=== PATIENT | female | born 1995 | race Caucasian/White ===

== ENCOUNTER 2016-07-22 20:04 | Emergency (ER) | payer BC ==
[2016-07-22 20:14] VITALS: RESP 16; TEMP 97.9; O2SAT 97
--- NOTE | 2016-07-22 20:41 | CPEKG ---
Heart Rate: 65 RR Interval: 923 P-R Interval: 148 QRSD Interval: 78 QT Interval: 412 QTC Interval: 429 P Lorain: 47 QRS Lorain: 72 T Wave Lorain: 59 EKG Severity - OTHERWISE NORMAL ECG - EKG Impression: SINUS ARRHYTHMIA, RATE 48-79 Electronically Signed By: Boo Rouse 22-Jul-2016 23:49:03
--- NOTE | 2016-07-22 20:44 | EDPHY ---
H & P Stated Complaint: sent from [facility] for PE concerns, cough malaise and chest pain Source: Patient Exam Limitations: No limitations - Personal History LMP (Females 10-55): Extended Cycle BCP/Inj Current Tetanus/Diphtheria Vaccine: Yes Current Tetanus Diphtheria and Acellular Pertussis (TDAP): Yes Tetanus Vaccine Date: within 5 years - Medical/Surgical History Hx Asthma: Yes Hx Chronic Respiratory Disease: No Hx Diabetes: No Hx Cardiac Disease: No Hx Renal Disease: No Hx Cirrhosis: No Hx Alcoholism: No Hx HIV/AIDS: No Hx Splenectomy or Spleen Trauma: No Other PMH: asthma, stomach ulcers. no PSH - Family History Significant Family History: No pertinent family hx - Social History Smoking Status: Never smoked Alcohol Use: None Time Seen by Provider: 07/22/16 20:22 HPI/ROS: CHIEF COMPLAINT: Sent to ER for evaluation of possible pulmonary embolism HISTORY OF PRESENT ILLNESS: The patient presents to the ED with several days of nausea, vomiting, cough, shortness of breath and inspiratory chest pain. The patient was seen at the [facility] earlier today. She had an x- ray performed and was started on antibiotics. Apparently the x-ray demonstrated some abnormal findings at the right lung base concerning for possible pulmonary embolism. The patient was sent here for further evaluation. Patient does use control pills. She has no history of PE or DVT. The patient denies asymmetric calf pain or swelling. The patient is definitely had infectious symptoms over the past week with cough, congestion, nausea and some resolved episodes of vomiting. REVIEW OF SYSTEMS: A comprehensive 10 point review of systems is otherwise negative aside from elements mentioned in the history of present illness. (Boo Rouse) - Physical Exam Exam: General Appearance: Alert, no distress Eyes: Pupils equal and round no pallor or injection ENT, Mouth: Mucous membranes moist Respiratory: There are no retractions, lungs are clear to auscultation Cardiovascular: Regular rate and rhythm Gastrointestinal: Abdomen is soft and nontender, no masses, bowel sounds normal Neurological: A&O, normal motor function, normal sensory exam, normal cranial nerves Skin: Warm and dry, no rashes Musculoskeletal: Neck is supple nontender Extremities: symmetrical, full range of motion (Boo Rouse) Constitutional: Initial Vital Signs Temperature (C) 36.6 C 07/22/16 20:12 Heart Rate 74 07/22/16 20:12 Respiratory Rate 16 07/22/16 20:12 Blood Pressure 134/74 H 07/22/16 20:12 O2 Sat (%) 97 07/22/16 20:12 O2 Delivery Mode Room Air Allergies/Adverse Reactions: Penicillins Allergy (Verified 07/22/16 20:09) Home Medications: Medication Instructions Recorded Albuterol Sulfate 07/22/16 Azithromycin 07/22/16 Beclomethasone Dipropionate 07/22/16 Minastrin 24 Fe Chewable Tab 07/22/16 Zofran 07/22/16 Medical Decision Making - Diagnostics EKG Interpretation: EKG: Complete interpretation has been separately recorded in the [email or web address] archive. Summary impression: Sinus rhythm (Boo Rouse) ED Course/Re-evaluation: The patient presents to the ED for evaluation of possible thromboembolic disease. The patient's D-dimer is negative which I feel adequately excludes pulmonary embolism in this low risk by Wells criteria patient. She presents to the ED with symptoms primarily consistent with bronchitis and viral syndrome. The patient is noted to have a possible mild infiltrate on her chest x-ray done at the [facility] has been given a prescription for antibiotics. The remainder of the patient's electrolytes look within normal limits. She was monitored in the ED without any evidence of arrhythmia. The patient will be discharged home in stable condition. She is encouraged to take Zofran as needed for nausea and antibiotic she had been prescribed earlier today. (Boo Rouse) Differential Diagnosis: Differential diagnosis considered includes pneumonia, pneumothorax, pulmonary embolism, viral syndrome (Boo Rouse) - Data Points Laboratory Results: Laboratory Results 07/22/16 20:45 07/22/16 20:45 07/22/16 20:45 WBC 9.92 H 10^3/uL (3.80-9.50) RBC 4.01 L 10^6/uL (4.18-5.33) Hgb 12.2 L g/dL (12.6-16.3) Hct 37.0 L % (38.0-47.0) MCV 92.3 fL (81.5-99.8) MCH 30.4 pg (27.9-34.1) MCHC 33.0 g/dL (32.4-36.7) RDW 13.5 % (11.5-15.2) Plt Count 339 10^3/uL (150-400) MPV 10.4 fL (8.7-11.7) Neut % (Auto) 52.6 % (39.3-74.2) Lymph % (Auto) 37.1 % (15.0-45.0) Pershing % (Auto) 8.2 % (4.5-13.0) Eos % (Auto) 1.6 % (0.6-7.6) Baso % (Auto) 0.2 L % (0.3-1.7) Nucleat RBC Rel Count 0.0 % (0.0-0.2) Absolute Neuts (auto) 5.22 10^3/uL (1.70-6.50) Absolute Lymphs (auto) 3.68 H 10^3/uL (1.00-3.00) Absolute Monos (auto) 0.81 H 10^3/uL (0.30-0.80) Absolute Eos (auto) 0.16 10^3/uL (0.03-0.40) Absolute Basos (auto) 0.02 10^3/uL (0.02-0.10) Absolute Nucleated RBC 0.00 10^3/uL (0-0.01) Immature Gran % 0.3 % (0.0-1.1) Immature Gran # 0.03 10^3/uL (0.00-0.10) D-Dimer 0.27 ug/mLFEU (0.00-0.50) Sodium 141 mEq/L (134-144) Potassium 4.2 mEq/L (3.5-5.2) Chloride 111 H mEq/L (97-110) Carbon Dioxide 17 L mEq/l (22-31) Anion Gap 13 mEq/L (8-16) BUN 12 mg/dL (7-23) Creatinine 0.6 mg/dL (0.6-1.0) Estimated GFR > 60 Glucose 98 mg/dL (70-100) Calcium 9.0 mg/dL (8.5-10.4) Beta HCG, Qual NEGATIVE Departure - Departure Disposition: Home, Routine, Self-Care Clinical Impression: Acute bronchitis Qualifiers: Bronchitis organism: other organism Qualifier Code: (J20.8) Acute bronchitis due to other specified organisms Condition: Fair Instructions: Acute Bronchitis (ED) Additional Instructions: 1. Please take antibiotics as prescribed. 2. There is no evidence of a blood clot based upon the testing done today. 3. Zofran as needed for nausea. 4. Please return to the ED for markedly worsening symptoms or other concerns. Referrals: [facility] [Outside] - 1-2 days without fail
[2016-07-22 20:58] LABS: % IMMATURE GRANULYOCYTES 0.3 % (0.0-1.1); ABSOLUTE IMMATURE GRANULOCYTES 0.03 10^3/uL (0.00-0.10); ADD DIFF? NO; ADD MORPH? NO; ADD SCAN? NO; ATYPICAL LYMPHOCYTE FLAG 30 (0-99); FRAGMENT RBC FLAG 0 (0-99); HEMOGLOBIN 12.2 g/dL (12.6-16.3); LEFT SHIFT FLG 0 (0-99); LIPEMIA HEMOLYSIS FLAG 80 (0-99); MEAN CELL HEMOGLOBIN 30.4 pg (27.9-34.1); MEAN CELL VOLUME 92.3 fL (81.5-99.8); MEAN PLATELET VOLUME 10.4 fL (8.7-11.7); PLATELET CLUMPS FLAG 0 (0-99); PLATELET COUNT 339 10^3/uL (150-400); RED BLOOD CELL COUNT 4.01 10^6/uL (4.18-5.33); RED CELL DISTRIBUTION WIDTH 13.5 % (11.5-15.2)
[2016-07-22 21:28] LABS: ANION GAP 13 mEq/L (8-16); CARBON DIOXIDE 17 mEq/l (22-31); CHLORIDE 111 mEq/L (97-110); CREATININE 0.6 mg/dL (0.6-1.0); GLOMERULAR FILTRATION RATE > 60; GLUCOSE 98 mg/dL (70-100); POTASSIUM 4.2 mEq/L (3.5-5.2); SODIUM 141 mEq/L (134-144)
[2016-07-22 22:36] VITALS: BP 129/54; PULSE 65
== END 2016-07-22 22:36 | disposition home or self-care (01) ==
DX: J20.8 Acute bronchitis due to other specified organisms (principal); J45.909 Unspecified asthma, uncomplicated

== ENCOUNTER 2017-02-04 13:17 | Observation (INO) | payer BC ==
--- NOTE | 2017-02-04 15:29 | EDPHY ---
H & P Stated Complaint: abdominal and pelvic pain . nausea and vomitting HPI/ROS: CHIEF COMPLAINT: Abdominal pain. HISTORY OF PRESENT ILLNESS: This patient is a 21 year old female arriving with her boyfriend complaining of abdominal pain and abnormal vaginal discharge worsening over the last two weeks. She was evaluated by her primary care physician at [facility] who diagnosed her with pelvic inflammatory disease. Pelvic exam and cultures done. She has a history of chronic yeast infections and her symptoms began with a suspected yeast infection in the first week of December. She treated this with 5- day terconazole cream. Over the last two weeks she has had worsening pain with intercourse and "greenish" vaginal discharge with associated lower abdominal pains which have waxed and waned. In the last three days, she has developed more pain in her lower abdomen. Last night, she had dysuria and her urine was dark and "smelly". She is unable to tolerate oral antibiotics or take any pills at all, so her primary care provider has recommended admission and treatment with IV antibiotics. She received IM Ceftriaxone prior to arrival. REVIEW OF SYSTEMS: A 10 point review of systems was performed and is negative with the exception of the elements mentioned in the history of present illness. Past medical history: Asthma, stomach ulcers, yeast infections, sexually transmitted infections Past surgical history: Noncontributory Family history: Unknown. Social history: Significant other at bedside. [employer] student. She drinks alcohol socially, does not use tobacco products. Occasional marijuana use, no illicits. Adult Physical: Vital signs reviewed. General Appearance: Alert, no acute distress. Eyes: Pupils equal and round, no conjunctival injection, no discharge. ENT, Mouth: Mucous membranes are moist, no oropharyngeal erythema or edema. Neck: No lymphadenopathy, supple. Respiratory: Lungs are clear to auscultation; no wheezes, rales, or rhonchi. Cardiovascular: Regular rate and rhythm; no murmur, rub, or gallop. Gastrointestinal: Midline suprapubic tenderness, right lower quadrant tenderness , abdomen is soft ,no masses or organomegaly, bowel sounds normal. Pelvic: Deferred, performed earlier at [facility] today. Skin: Warm and dry, no rashes, normal color. Back: No CVAT. Neurological: Alert and oriented. Moving all four extremities easily and equally. Psychiatric: Normal affect. - Personal History LMP (Females 10-55): 8-14 Days Ago Tetanus Vaccine Date: within 5 years - Medical/Surgical History Hx Asthma: Yes Hx Chronic Respiratory Disease: No Hx Diabetes: No Hx Cardiac Disease: No Hx Renal Disease: No Hx Cirrhosis: No Hx Alcoholism: No Hx HIV/AIDS: No Hx Splenectomy or Spleen Trauma: No Other PMH: asthma, stomach ulcers. no PSH - Social History Smoking Status: Never smoked Constitutional: Initial Vital Signs Temperature (C) 36.9 C 02/04/17 13:26 Heart Rate 98 02/04/17 13:26 Respiratory Rate 18 02/04/17 13:26 Blood Pressure 122/83 H 02/04/17 13:26 O2 Sat (%) 96 02/04/17 13:26 O2 Delivery Mode Room Air Allergies/Adverse Reactions: Penicillins Allergy (Verified 02/04/17 17:02) Vomiting Home Medications: Medication Instructions Recorded Albuterol [Proventil Inhaler HFA 1 - 2 puffs IH Q4H PRN 02/04/17 (*)] Norethindrone-E.estradiol-Iron 1 each PO DAILY@20 02/04/17 [Minastrin 24 Fe Chewable Tab] Medical Decision Making ED Course/Re-evaluation: 21 year old female presents for admission for treatment of pelvic inflammatory disease with IV antibiotics at the recommendation of her primary care provider. Perceived records from her care provider at [facility] documenting full pelvic exam. Cultures have been obtained. I reviewed the records. WBC normal. She is not febrile today. She was given a dose of ceftriaxone IM. It is the patient 's understanding that she will be admitted for IV antibiotics. Her caregiver at [facility] spoke with her at length about other options in terms of taking antibiotics. The only time in her life that she has ever successfully taken oral antibiotics was when she took oral liquid azithromycin in conjunction with Zofran. There is no oral form of doxycycline. It seems that the difficulty with taking antibiotics is related to nausea and vomiting and GI distress. 16:[address] Chaves, RETAIL LEASING AGENT. She accepts admission for IV antibiotic treatment of the patient's PID. Administered 1gm IV Ertapenem (after discussing antibiotic options with Dr. Krishnan of Infectious Disease) and 4mg IV Zofran. Hopefully arrangements can be made for her to receive any needed IV abx through the infusion center. Differential Diagnosis: Full evaluation for PID (pelvic exam and labs) not done in ED, as they were done [facility]. Other diagnostic considerations include bacterial vaginosis and other pelvic infections, UTI, pyelonephritis, PUD, gastritis, enteritis, IBS. - Data Points Medications Given: Discontinued Medications Ertapenem 1 gm/ Sodium (Chloride) 100 mls @ 200 mls/hr IV EDNOW ONE PRN Reason: Protocol Stop: 02/04/17 17:00 Last Admin: 02/04/17 18:21 Dose: 100 mls Azithromycin 500 mg/ Dextrose 255 mls @ 255 mls/hr IV DAILY SOFIA PRN Reason: Protocol Stop: 03/07/17 08:59 Last Admin: 02/05/17 09:27 Dose: 255 mls Ceftriaxone Sodium/Dextrose (Rocephin 1 Gm (Premix)) 50 mls @ 100 mls/hr IV DAILY SOFIA PRN Reason: Protocol Stop: 03/07/17 08:59 Last Admin: 02/05/17 11:08 Dose: 50 mls Ketorolac Tromethamine (Toradol) 30 mg IVP Q6 PRN PRN Reason: Pain, Breakthrough Stop: 02/09/17 21:59 Last Admin: 02/05/17 11:40 Dose: 30 mg Ondansetron HCl (Zofran) 4 mg IVP EDNOW ONE Stop: 02/04/17 16:48 Last Admin: 02/04/17 16:50 Dose: 4 mg Ondansetron HCl (Zofran Odt) 4 mg PO ONCE ONE Stop: 02/05/17 11:46 Last Admin: 02/05/17 11:43 Dose: 4 mg Departure - Departure Disposition: [facility] Acute Clinical Impression: Pelvic inflammatory disease (PID) Condition: Fair Report Scribed for: Ann Gomez Report Scribed by: Anya Schmidt Date of Report: 02/04/17 Time of Report: 15:36 Physician Review and Approval Statement: 02/06/17 08:52 Portions of this chart were entered by a biomedical scientist. I personally performed the HPI, PE, MDM. I have reviewed the documentation and agree with it , as indicated by my signature.
[2017-02-04] MEDS ORDERED: ERTAPENEM 1 GM in NS 100 ML IV ONE (16:31)
[2017-02-04] MEDS ORDERED: ONDANSETRON 4 MG/2 ML VIAL IVP ONE (16:47)
[2017-02-04 16:58] LABS: % IMMATURE GRANULYOCYTES 0.2 % (0.0-1.1); ABSOLUTE IMMATURE GRANULOCYTES 0.02 10^3/uL (0.00-0.10); ADD DIFF? NO; ADD MORPH? NO; ADD SCAN? NO; ATYPICAL LYMPHOCYTE FLAG 10 (0-99); FRAGMENT RBC FLAG 0 (0-99); HEMATOCRIT 40.9 % (38.0-47.0); HEMOGLOBIN 13.5 g/dL (12.6-16.3); LEFT SHIFT FLG 0 (0-99); LIPEMIA HEMOLYSIS FLAG 80 (0-99); MEAN CELL VOLUME 87.8 fL (81.5-99.8); MEAN PLATELET VOLUME 10.5 fL (8.7-11.7); PLATELET CLUMPS FLAG 0 (0-99); PLATELET COUNT 350 10^3/uL (150-400); RED BLOOD CELL COUNT 4.66 10^6/uL (4.18-5.33); RED CELL DISTRIBUTION WIDTH 14.6 % (11.5-15.2)
[2017-02-05] MEDS ORDERED: KETOROLAC 30 MG/1 ML SDV IVP SCH
--- NOTE | 2017-02-05 02:51 | GHP ---
[f rep st] PREOP HISTORY AND PHYSICAL DATE OF ADMISSION: 02/04/2017 HISTORY UPON ADMISSION: The patient is a 21-year-old, G0, who was admitted on 02/04/2017 onto the G ynecology service for IV antibiotics for presumptive diagnosis from [facility]. Patient was not admitted due to the severity of her symptoms, but more so because the patient refused oral antib iotics because of a prior history of antibiotics and GI trouble. The patient was seen at [facility] on 02/04 with complaints of "intense" lower abdominal pain x3 days, at which point patient needed h elp to even sit up. She also reported a greenish vaginal discharge for up to 2 months previously, a nd she was treated for yeast infection in November 2016. 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 The patient has been afebrile and had a normal white count, but did demonstrate cerv ical motion tenderness and bilateral adnexal tenderness to our nurse practitioner at [facility]. Du ring the evaluation there, the patient had a wet prep that was negative for everything except a mode rate amount of WBCs and few bacteria. She had a negative UA and negative HCG. A gonorrhea and chla mydia test, as well as Trichomonas and BD affirm were done and sent to the lab. The patient had a d ose of Rocephin given to her at [facility] today. She was prescribed other oral antibiotics, but wh en the patient refused to take oral medication she was advised to come to the hospital to be admitte d for IV antibiotics. The patient has reported waves of pain that seemed more bothersome approximat brittani 3 weeks ago, and then seemed better and today was worse, however, she has felt better through evening. The patient described mild nausea throughout the day and has not had much appetite this evening, however, declines any medication for nausea. The patient has been hydrating well. She rep orts decreased urine output this morning, but definitely a lot tonight. Was having mild dysuria yes terday, but again the urinalysis was negative. The patient received 1 dose of IV antibiotics in the emergency room and has been resting relatively comfortably and declining any medicine for pain this evening. PAST MEDICAL HISTORY: The patient reports significant GI issues, for which she was told she had irr itable bowel syndrome in the past, although has never really had a specialist evaluation. The patie nt reports multiple testing through [facility], however, when encouraged to last year, the patient d id not follow up with GI. The patient reports significant issues back in 2014 after multiple rounds of antibiotics, at which time she had significant nausea and vomiting and blood in her stool. The patient has felt improvement after she saw a chiropractor and removed gluten from her diet. The pat ient states that this year she had several rounds of infections requiring antibiotics and was given oral antibiotics with Zofran, and was nauseated and throwing up for all the days she took antibiotic s. She states her last antibiotics were in October of this year. PAST SURGICAL HISTORY: Negative. ALLERGIES: Penicillin. CURRENT MEDICATIONS: Occasional multivitamins, Minastrin control pills, probiotics. The sarahy ent denies any herbal treatments. SOCIAL HISTORY: The patient currently has a boyfriend for the last 3-4 months, who is present with her in the hospital. Records from [facility] state, the patient has had 8 sexual partners in the 12 months. The patient denies smoking regularly, but reports 0-3 a month. The patient reports h eavy alcohol use last year, however, she decreased the amount and her GI problems improved. PAST SWING MANAGER HISTORY: The patient is on Minastrin for control and takes this continually except f or quarterly. She does stop the pill for 1 month to have a menstrual cycle. The patient has had a history of chlamydia in 2014. Has had molluscum in the past. Does not use condoms with her current boyfriend. Her last menstrual period was December 12, 2016. LABORATORY DATA: At the hospital reveals white count 8.8, hemoglobin 13, hematocrit 40, and platele ts 350,000. No other lab testing done here. PHYSICAL EXAMINATION: VITAL SIGNS: Blood pressure 122/83 down to 101/67, temp 36.9, pulse 72 to 98 . GENERAL: Upon admission, the patient is a well-developed, well-nourished, white female, in visib ly minimal discomfort except with deep palpation in her lower abdomen. The patient is resting comfo rtably. LUNGS: Clear to auscultation bilaterally. CARDIOVASCULAR: Regular rate and rhythm. ABDO MEN: Soft, nondistended, no tenderness in the upper abdomen. There is mild tenderness diffusely in the lower abdomen. No guarding or rebound. EXTREMITIES: Nontender with no edema. PELVIC: Exam is not repeated. ASSESSMENT: Pelvic inflammatory disease based solely on the patient describing significant discomfo rt, however, has been able to socially interact quite a bit this week. Afebrile and normal white co unt. History of gastrointestinal intolerance of antibiotics, but not formal allergies. PLAN: The patient was admitted tonight and had IV ertapenem, and per Dr. Krishnan this will cover PID bacteria, and the patient will be able to have it once a day outpatient through the [facility] infusion room. We will have social work help tomorrow to make the arrangements, and the patient will be abl e to manage this at outpatient. /[id number]/MODL
[2017-02-05] MEDS: KETOROLAC 30 MG/1 ML SDV IVP PRN ×2 (04:33→11:40)
[2017-02-05 04:45] VITALS: O2SAT 97
[2017-02-05 08:40] VITALS: BP 107/65; PULSE 56; RESP 14; TEMP 98.6
--- NOTE | 2017-02-05 08:52 | SOAPPROG ---
SOAP Progress Note Assessment/Plan: Assessment: HD 2 with IV abx treatment for mild PID less tender Plan: Will get arranged to have IV abx through infusion clinic. Requesting Dr Terell Krishnan for rec on how many days for treatment and help getting pt into that clinic. Strongly rec pt f/u with GI for eval of bowel history 02/05/17 08:42 Subjective: Pt states she slept well. not really nauseated now. States pain in middle of night but resolved - had Toradol last noc. Objective: Vital Signs Temp Pulse Resp BP Pulse Ox 37.0 C 56 L 14 107/65 97 02/05/17 08:30 02/05/17 08:30 02/05/17 08:30 02/05/17 08:30 02/05/17 08:30 Laboratory Results 02/04/17 16:40 02/04/17 02/05/17 02/06/17 05:59 05:59 05:59 Output Total 900 Balance -900 Physical Exam - Physical Exam General Appearance: WD/WN Abdomen: non-tender (mild tenderness in lower quads - nondistended), soft Pelvic Exam: deferred Extremities: non-tender, pedal edema (none) Neuro/Psych: alert, normal mood/affect ICD10 Worksheet Patient Problems: Problems Problem Status Onset Pelvic inflammatory disease (PID) Acute
[2017-02-05] MEDS ORDERED: AZITHROMYCIN IV 500 MG in D5W 250 ML IV SCH (09:00)
[2017-02-05] MEDS ORDERED: ONDANSETRON DISINTEGRATING 4 MG TAB PO ONE (11:45)
--- NOTE | 2017-02-05 17:09 | GCON ---
[f rep st] CONSULTATION INPATIENT INFECTIOUS DISEASE CONSULTATION REFERRING PHYSICIAN: Desiree Chaves MD REASON FOR REFERRAL: Probable pelvic inflammatory disease. HISTORY OF PRESENT ILLNESS: Patient is a 21-year-old female who [facility] referral from [facility] on 02/04/2017 complaining of abdominal pain. The sarahy ant was diagnosed with pelvic inflammatory disease. She had had a suspected yeast infection the week of December and treated this with an antifungal topical or mucosal application. She states over t he last 2 weeks, she has had worsening pain with intercourse and greenish vaginal discharge with low er abdominal pain. The patient also noted dysuria and malodorous urine. She has an interesting med ical history in which she is unable to tolerate oral antibiotics be they pill or liquid. The patichiquita noyola had received a dose of IM ceftriaxone in the [facility] prior to her arrival in the ER. Huber cruz was given a dose of ertapenem in the ER and admitted. I am seeing her today in consultation. She currently just has some mild abdominal pain. She gives a history of GI sensitivities to gluten. PAST MEDICAL HISTORY: 1. Asthma. 2. Stomach ulcers. 3. Yeast infections. 4. Some history of sexually transmitted disease. PAST SURGICAL HISTORY: Reviewed and nonpertinent. ANTIBIOTICS: Ertapenem. ALLERGIES: Patient is allergic to penicillins. SOCIAL HISTORY: Patient is a student at the [employer] ([place], [place]). She has a boyfriend who is in the room and they are monogamous. The patient does have occasional alcohol consumption. No known t obacco use. No other drug use noted. FAMILY HISTORY: Reviewed but noncontributory. REVIEW OF SYSTEMS: Other than that detailed above in the history of present illness, a comprehensiv e 10-system review is negative. PHYSICAL EXAMINATION: VITAL SIGNS: Temperature maximum is 37.2, temp current is 37.0, heart rate i s 56, respiratory rate is 14, blood pressure is 107/65. GENERAL: The patient is a well-formed, wel l-nourished female in no acute distress. She is not toxic in appearance. She is alert and oriented x3. She is in a pleasant demeanor. HEENT: Normocephalic for age. Atraumatic. No scleral icteru s. No oral lesion or drainage from the nares. Eyes, lids and conjunctivae within normal limits. P upils are equal and round bilaterally. NECK: Supple. No meningismus. LUNGS: Clear to auscultati on bilaterally with good effort. HEART: Regular rate and rhythm. No murmur, rub, or gallop noted. ABDOMEN: Soft. Tender to deep palpation suprapubically and in the right lower quadrant. No rebo und. No masses. SKIN: Warm and dry to the touch. No rash or lesion seen. NEURO: Cranial nerves 2-12 seem to be intact. Peripheral sensation seems intact in extremities. LABORATORY DATA: Patient has a CBC dated 02/04/2017 which is all within normal limits. ASSESSMENT: Possible mild pelvic inflammatory disease. Reasonable given history of sexually transm itted infections and symptomatology. We will empirically use intravenous ceftriaxone and azithromyc in for this patient over the next 3 days. We will give her a dose here and then she can return to [facility] infusion center for Wednesday, Wednesday and Wednesday infusions. Patient voiced her understanding of t his plan and agreement. PLAN: 1. Ceftriaxone 2 g IV q.24 hours x5 days total. 2. Azithromycin 500 mg IV q.24 hours x4 days. 3. Follow up in clinic with clinical symptoms. /[id number]/MODL
[2017-02-05] MEDS ORDERED: NORETHINDRONE E ESTRADIOL IRON PO SCH (20:00)
== END 2017-02-05 11:55 | disposition home or self-care (01) ==
LOC: FOB 18:12
PROVIDERS: ADMIT Obstetrics & Gynecology; ATTEND Obstetrics & Gynecology
DX: N73.9 Female pelvic inflammatory disease, unspecified (principal); J45.909 Unspecified asthma, uncomplicated; Z86.19 Personal history of other infectious and parasitic diseases; Z87.11 Personal history of peptic ulcer disease
CPT/HCPCS: G0378 ×2; 96374; J0456; J0696; J1335; J1885; J2405

== ENCOUNTER → 2017-02-08 | Outpatient (CLI) | payer BC | LOC: FIMAGING 16:17 | PROVIDERS: ATTEND Nurse Practitioner Women's Health | DX: R30.0 Dysuria (principal); R10.2 Pelvic and perineal pain ==

== ENCOUNTER 2017-02-16 18:12 | Emergency (ER) | payer BC ==
[2017-02-16] MEDS ORDERED: ONDANSETRON DISINTEGRATING 4 MG TAB PO ONE (19:12)
[2017-02-16] MEDS ORDERED: NS 1,000 ML IV ONE (20:19)
[2017-02-16 20:55] LABS: % IMMATURE GRANULYOCYTES 0.3 % (0.0-1.1); ABSOLUTE IMMATURE GRANULOCYTES 0.03 10^3/uL (0.00-0.10); ADD DIFF? NO; ADD MORPH? NO; ADD SCAN? NO; ATYPICAL LYMPHOCYTE FLAG 10 (0-99); FRAGMENT RBC FLAG 0 (0-99); HEMOGLOBIN 12.7 g/dL (12.6-16.3); LEFT SHIFT FLG 0 (0-99); LIPEMIA HEMOLYSIS FLAG 80 (0-99); MEAN CELL HEMOGLOBIN 29.7 pg (27.9-34.1); MEAN CELL HEMOGLOBIN CONCENTR. 33.4 g/dL (32.4-36.7); MEAN CELL VOLUME 88.8 fL (81.5-99.8); MEAN PLATELET VOLUME 10.4 fL (8.7-11.7); PLATELET CLUMPS FLAG 10 (0-99); PLATELET COUNT 353 10^3/uL (150-400); RED BLOOD CELL COUNT 4.28 10^6/uL (4.18-5.33); RED CELL DISTRIBUTION WIDTH 14.4 % (11.5-15.2)
[2017-02-16 21:00] LABS: ANION GAP 15 mEq/L (8-16); CALCIUM 9.8 mg/dL (8.5-10.4); CARBON DIOXIDE 21 mEq/l (22-31); CHLORIDE 104 mEq/L (97-110); CREATININE 0.6 mg/dL (0.6-1.0); GLOMERULAR FILTRATION RATE > 60; GLUCOSE 78 mg/dL (70-100); POTASSIUM 3.5 mEq/L (3.5-5.2); SODIUM 140 mEq/L (134-144)
[2017-02-16 22:01] VITALS: TEMP 97.9
[2017-02-16] MEDS ORDERED: KETOROLAC 30 MG/1 ML SDV IVP ONE (22:47)
[2017-02-16] MEDS ORDERED: AZITHROMYCIN IV 500 MG in D5W 250 ML IV ONE (22:54)
[2017-02-16] MEDS ORDERED: PROMETHAZINE HCL 25 MG/ML INJ IVP ONE (23:35)
--- NOTE | 2017-02-17 | EDPHY ---
H & P Time Seen by Provider: 02/16/17 20:04 HPI/ROS: CHIEF COMPLAINT: Vomiting, diarrhea, abdominal pain HISTORY OF PRESENT ILLNESS: 21-year-old female presents to the emergency department by private vehicle with her boyfriend complaining of ongoing abdominal pain. The patient would for pelvic inflammatory disease over 1 week ago. She was admitted to the hospital because oral antibiotics make her very nauseous and caused her to vomit. She was followed by Dr. Chaves. She was also seen by Dr. Terell Krishnan. She received IV ertapenem and IV ceftriaxone. She finished antibiotics 8 days ago and now presents to the emergency department with recurring abdominal pain and now vomiting and diarrhea. The patient states that she has been seen by OBGYN at [facility] [employer] and was seen earlier today and a bimanual exam. She states that this was painful. She was sent to the emergency department for further evaluation. She states that she has had strict pelvic rest and has not had intercourse since being treated for PID. She states that she did test positive for Chlamydia. She denies back pain. She denies chest pain or difficulty breathing. She has felt feverish and took Tylenol approximately 1 hour prior to arrival. Her last menstrual period was 2 weeks ago and she denies . Denies dysuria, urgency or frequency with urination. REVIEW OF SYSTEMS: Constitutional: Subjective fevers, chills Eyes: No double or blurry vision. ENT: No sore throat. Respiratory: No cough, no shortness of breath. Cardiac: No chest pain. Gastrointestinal: As above Genitourinary: No dysuria. Musculoskeletal: No neck or back pain. Skin: No rashes. Neurological: No headache. Past Medical/Surgical History: Recently treated for PID Social History: [employer] student Smoking Status: Never smoked Physical Exam: General Appearance: Alert, no distress. Afebrile. Boyfriend at bedside Eyes: Pupils equal and round. Extraocular motions are all intact. ENT: Mouth: Mucous membranes moist. Respiratory: No wheezing, rhonchi, or rales, lungs are clear to auscultation. Cardiovascular: Regular rate and rhythm. Gastrointestinal: Abdomen is soft. She has some mild tenderness with palpation in the left and the right lower quadrant. There is no rebound, guarding or masses noted. No CVA tenderness bilaterally. Neurological: Alert and oriented x 3, cranial nerves II through XII grossly intact Skin: Warm and dry, no rashes. Genitourinary: Bimanual exam performed with nurse, Oksana, at bedside reveals positive cervical motion tenderness. Musculoskeletal: Nontender to palpate along the cervical, thoracic or lumbar spine. Neck is supple. Extremities: Full range of motion and no peripheral edema. Psychiatric: Patient is oriented X 3, there is no agitation. Constitutional: Initial Vital Signs Temperature (C) 36.9 C 02/16/17 18:25 Heart Rate 69 02/16/17 18:25 Respiratory Rate 16 02/16/17 18:25 Blood Pressure 130/79 H 02/16/17 18:25 O2 Sat (%) 97 02/16/17 18:25 O2 Delivery Mode Room Air Allergies/Adverse Reactions: Penicillins Allergy (Verified 02/04/17 17:02) Vomiting Home Medications: Medication Instructions Recorded Albuterol [Proventil Inhaler HFA 1 - 2 puffs IH Q4H PRN 02/04/17 (*)] Norethindrone-E.estradiol-Iron 1 each PO DAILY@20 02/04/17 [Minastrin 24 Fe Chewable Tab] Medical Decision Making - Diagnostics Imaging Results: Imaging Impressions Abdomen Ultrasound 02/16/17 20:17 Impression: Normal appendix. Findings called to the ER 02/16/2017 at 21:56. Pelvic/Renal Ultrasound 02/16/17 20:17 Impression: Normal pelvic ultrasound. Findings called to the ER 02/16/2017 at 21:56. Imaging: Discussed imaging studies w/ square dance caller Radiologist ED Course/Re-evaluation: 21-year-old female presents emergency department with recurring abdominal pain, vomiting and diarrhea. IV was established and laboratory studies were drawn. Patient has a white blood cell count of 10.8. Chemistries were all normal. She received IV normal saline. She initially received IV Zofran with relief. The patient was monitored for over 6 hours emergency department had no recurring vomiting and no episodes of diarrhea. I did explain the risks of possible treated difficile than her recent antibiotics. An order has been placed in the computer and the patient bring a stool specimen back to the lab for analysis. I spoke with the on-call OBGYN, Dr. Consuelo Marina, who recommended giving the patient 5 mg of IV Zithromax now in the emergency department. She recommended close follow-up in their office this week. Understands the above instructions. She is comfortable being discharged home. She was instructed to return if she fever, recurrent vomiting, or if she felt worse in any way. Differential Diagnosis: Including but not limited to recurring pelvic inflammatory disease, she transmitted infection, gastroenteritis, infectious diarrhea including Clostridium difficile, brain cyst, ovarian torsion - Data Points Laboratory Results: Laboratory Results 02/16/17 20:35 02/16/17 20:35 02/16/17 02/16/17 02/16/17 20:35 20:35 20:35 WBC 10.80 10^3/uL H 10^3/uL (3.80-9.50) RBC 4.28 10^6/uL 10^6/uL (4.18-5.33) Hgb 12.7 g/dL g/dL (12.6-16.3) Hct 38.0 % % (38.0-47.0) MCV 88.8 fL fL (81.5-99.8) MCH 29.7 pg pg (27.9-34.1) MCHC 33.4 g/dL g/dL (32.4-36.7) RDW 14.4 % % (11.5-15.2) Plt Count 353 10^3/uL 10^3/uL (150-400) MPV 10.4 fL fL (8.7-11.7) Neut % (Auto) 49.4 % % (39.3-74.2) Lymph % (Auto) 41.8 % % (15.0-45.0) [place] % (Auto) 8.0 % % (4.5-13.0) Eos % (Auto) 0.1 % L % (0.6-7.6) Baso % (Auto) 0.4 % % (0.3-1.7) Nucleat RBC Rel Count 0.0 % % (0.0-0.2) Absolute Neuts (auto) 5.35 10^3/uL 10^3/uL (1.70-6.50) Absolute Lymphs (auto) 4.51 10^3/uL H 10^3/uL (1.00-3.00) Absolute Monos (auto) 0.86 10^3/uL H 10^3/uL (0.30-0.80) Absolute Eos (auto) 0.01 10^3/uL L 10^3/uL (0.03-0.40) Absolute Basos (auto) 0.04 10^3/uL 10^3/uL (0.02-0.10) Absolute Nucleated RBC 0.00 10^3/uL 10^3/uL (0-0.01) Immature Gran % 0.3 % % (0.0-1.1) Immature Gran # 0.03 10^3/uL 10^3/uL (0.00-0.10) Sodium 140 mEq/L mEq/L (134-144) Potassium 3.5 mEq/L mEq/L (3.5-5.2) Chloride 104 mEq/L mEq/L (97-110) Carbon Dioxide 21 mEq/l L mEq/l (22-31) Anion Gap 15 mEq/L mEq/L (8-16) BUN 6 mg/dL L mg/dL (7-23) Creatinine 0.6 mg/dL mg/dL (0.6-1.0) Estimated GFR > 60 Glucose 78 mg/dL mg/dL (70-100) Calcium 9.8 mg/dL mg/dL (8.5-10.4) Beta HCG, Qual NEGATIVE Medications Given: Discontinued Medications Sodium Chloride (Ns) 1,000 mls @ 0 mls/hr IV ONCE ONE PRN Reason: Wide Open Stop: 02/16/17 20:20 Last Admin: 02/16/17 20:37 Dose: 1,000 mls Azithromycin 500 mg/ Dextrose 255 mls @ 255 mls/hr IV EDNOW ONE PRN Reason: Protocol Stop: 02/16/17 23:53 Last Admin: 02/16/17 23:13 Dose: 255 mls Ketorolac Tromethamine (Toradol) 30 mg IVP EDNOW ONE Stop: 02/16/17 22:48 Last Admin: 02/16/17 22:51 Dose: 30 mg Ondansetron HCl (Zofran Odt) 4 mg PO EDNOW ONE Stop: 02/16/17 19:13 Last Admin: 02/16/17 19:24 Dose: 4 mg Promethazine HCl (Phenergan) 12.5 mg IVP ONCE ONE Stop: 02/16/17 23:36 Last Admin: 09/05/17 23:43 Dose: 12.5 mg Departure - Departure Disposition: Home, Routine, Self-Care Clinical Impression: Pelvic inflammatory disease (PID), Acute gastroenteritis Abdominal pain Qualifiers: Abdominal location: lower abdomen, unspecified Qualified Code(s): R10.30 - Lower abdominal pain, unspecified Condition: Good Instructions: Acute Nausea and Vomiting (ED), Acute Diarrhea (ED), Acute Abdominal Pain (ED) Additional Instructions: Abdominal Pain: Return to the Emergency Department immediately for increasing pain, fever, vomiting, or if not completely better in 8-12 hours. Follow-up with OBGYN this week to recheck. Bring a stool specimen back to the lab as soon as possible. Referrals: Misa Dasilva MD [Primary Care Provider] - As per Instructions Consuelo Marina DO [Doctor of Osteopathy] - As per Instructions (OBGYN on-call. Call to arrange follow-up appointment to be seen this week. Tell them that you were seen in the emergency department and we spoke with Dr. Consuelo Marina while you were here.)
[2017-02-17 00:23] VITALS: BP 107/62; PULSE 72; RESP 18; O2SAT 97
== END 2017-02-17 00:19 | disposition home or self-care (01) ==
DX: N73.9 Female pelvic inflammatory disease, unspecified (principal); K52.9 Noninfective gastroenteritis and colitis, unspecified; R11.10 Vomiting, unspecified
CPT/HCPCS: 96365; J0456; J1885; J2550

== ENCOUNTER 2017-04-23 08:21 | Day surgery (SDC) | payer BC ==
--- NOTE | 2017-04-22 14:42 | PDGENHP ---
History and Physical - Chief Complaint chronic pelvic pain of the female - History of Present Illness 22-year-old G0 white female with chronic pelvic pain. She has been treated for vaginosis/vaginitis and Chlamydia over past 1-2 months. She has presented several times over past few months to ED and nearby urgent care centers (in [place] and [facility]) for pelvic pain. Recent testing for infection has been negative. Transvaginal ultrasound imaging was performed on 04/05/17, which revealed normal-sized uterus and no adnexal abnormalities, no free fluid in pelvis. Despite treatment with conservative measures--including OCPs, Ibuprofen and self treatment with CBD cream, patient reports persistent suprapubic pain, left lower quadrant pain. She states that it has been worsening over past several months. She denies urinary complaints, denies GI complaints. History Information - Allergies/Home Medication List Allergies/Adverse Reactions: Penicillins Allergy (Verified 02/04/17 17:02) Vomiting Home Medications: Albuterol [Proventil Inhaler HFA (*)] 1 - 2 puffs IH Q4H PRN 02/04/17 [Last Taken Unknown] Norethindrone-E.estradiol-Iron [Minastrin 24 Fe Chewable Tab] 1 each PO DAILY@ 20 02/04/17 [Last Taken 02/03/17 20:00] I have personally reviewed and updated: family history, medical history, social history, surgical history - Past Medical History asthma Additional medical history: Admited overnight 02/04/2017 for IV antibiotics for suspected PID. H/o Chlamydia in December 2014, January 2017; recent LEIGH ANN negative. - Family History Additional family history: HTN (Mom), CVD (maternal grandmother), Lung cancer ( maternal aunt), Anxiety (Mom), epilepsy (mom), RA (mom) - Social History Smoking Status: Never smoked Alcohol Use: Occasionally Drug Use: Marijuana (CBD cream for pain) Review of Systems Review of Systems: ROS: 10pt was reviewed & negative except for what was stated in HPI & below Physical Exam Physical Exam: Constitutional: no apparent distress, uncomfortable Ears, Nose, Mouth, Throat: moist mucous membranes, hearing normal Cardiovascular: regular rate and rhythym, no murmur, rub, or gallop Respiratory: no respiratory distress, no rales or rhonchi, clear to auscultation Gastrointestinal: normoactive bowel sounds, other (soft abdomen, tender to palpation in LLQ and suprapubic ) Genitourinary: no bladder fullness Skin: warm, normal color Musculoskeletal: full muscle strength, no muscle tenderness Neurologic: AAOx3, sensation intact bilaterally Psychiatric: interacting appropriately, not anxious Lab Data & Imaging Review Imaging Review: Transvaginal imaging (performed 04/05/2017 @ [place] [facility]) revealed normal-sized and normal-appearing pelvic organs and no abdominal/pelvic free fluid. Assessment & Plan Assessment: 22-year-old G0 white female with chronic pelvic pain. Plan: After discussion of options--including: (1) conservative management, continued; (2) medical management (already taking high-dose NSAIDs, OCPs); or surgery-- patient wanted to pursue surgical options. I reviewed risks, benefits, alternative of diagnostic laparoscopy, possible fulguration of endometriosis, and chromotubation to confirm bilateral fallopian tube patency. Patient consented to proposed outpatient procedures which will be performed on 04/23/17 at [facility].
[~2017-04-23 08:21] MED LIST: ceFAZolin 2 GM/SWFI 2 GM/20 ML SYR IVP ONE
[2017-04-23] MEDS ORDERED: LR 1,000 ML IV ONE (08:49)
[2017-04-23] MEDS ORDERED: LIDOCAINE 1% 2 ML INJ ID PRN (08:49)
--- NOTE | 2017-04-23 10:05 | PDHPUP ---
History & Physical Update H&P update statement: This history and physical update is based on an assessment of the patient which was completed after admission or registration (within 24 hours), but prior to the surgery/procedure. H&P update: H&P reviewed & patient examined, no change in patient's condition since H&P completed
[2017-04-23] MEDS ORDERED: MIDAZOLAM 2 MG/2 ML VIAL IVP ONE (10:19)
--- NOTE | 2017-04-23 10:19 | PDANEPAE ---
ANE History of Present Illness 22 yo F w abdominal pain here for ex lap ANE Past Medical History - Cardiovascular History Hx Hypertension: No Hx Arrhythmias: No Hx Chest Pain: No Hx Coronary Artery / Peripheral Vascular Disease: No Hx CHF / Valvular Disease: No Hx Palpitations: No - Pulmonary History Hx COPD: No Hx Asthma/Reactive Airway Disease: Yes Hx Recent Upper Respiratory Infection: No Hx Oxygen in Use at Home: No Hx Sleep Apnea: No Sleep Apnea Screening Result - Last Documented: Negative Pulmonary History Comment: INHALER ALLERGY & EXERCISE INDUCED - Neurologic History Hx Cerebrovascular Accident: No Hx Seizures: No Hx Dementia: No - Endocrine History Hx Diabetes: No - Renal History Hx Renal Disorders: No - Liver History Hx Hepatic Disorders: No - Neurological & Psychiatric Hx Hx Neurological and Psychiatric Disorders: No - Cancer History Hx Cancer: No - Congenital Disorder History Hx Congenital Disorders: No - GI History Hx Gastrointestinal Disorders: No Gastrointestinal History Comment: POSS IBS - Other Health History Other Health History: ECZEMA WINDY ARMS - Chronic Pain History Chronic Pain: Yes (ABD PAIN SINCE DECEMBER) - Surgical History Prior Surgeries: WISDOM TEETH ANE Review of Systems Review of Systems: - Exercise capacity METS (RN): 4 METS ANE Patient History - Allergies Allergies/Adverse Reactions: Penicillins Allergy (Verified 02/04/17 17:02) Vomiting - Home Medications Home Medications: Albuterol [Proventil Inhaler HFA (*)] 1 - 2 puffs IH Q4H PRN 02/04/17 [Last Taken 1 Month Ago ~03/23/17] Norethindrone-E.estradiol-Iron [Minastrin 24 Fe Chewable Tab] 1 each PO DAILY@ 20 02/04/17 [Last Taken 1 Day Ago ~04/22/17] - NPO status NPO Status: no food or drink >8 hours NPO Since - Liquids (Date): 04/22/17 NPO Since - Liquids (Time): 23:00 NPO Since - Solids (Date): 04/22/17 NPO Since - Solids (Time): 19:00 - Anes Hx Anes Hx: no prior problems - Smoking Hx Smoking Status: Never smoked - Alcohol Use Alcohol Use: Occasionally - Family Anes Hx Family Anes Hx: none Family Hx Anesthesia Complications: NEG ANE Labs/Vital Signs - Vital Signs Blood Pressure: 111/81 Heart Rate: 78 Respiratory Rate: 18 O2 Sat (%): 98 Height: 163.83 cm Weight: 65.771 kg ANE Physical Exam - Airway Neck exam: FROM Mallampati Score: Class 2 Mouth exam: normal dental/mouth exam - Pulmonary Pulmonary: no respiratory distress, clear to auscultation - Cardiovascular Cardiovascular: regular rate and rhythym, no murmur, rub, or gallop - ASA Status ASA Status: II ANE Anesthesia Plan Anesthesia Plan: general endotracheal anesthesia
[2017-04-23] MEDS ORDERED: PROPOFOL 200 MG/20 ML VIAL ONE ×2 (10:24)
[2017-04-23] MEDS ORDERED: fentaNYL 100 MCG/2 ML INJ ONE ×2 (10:24→11:43)
[2017-04-23] MEDS ORDERED: LIDOCAINE 2% 100 MG/5 ML SYR ONE (10:25)
[2017-04-23] MEDS ORDERED: ROCURONIUM 50 MG/5 ML VIAL ONE (10:25)
[2017-04-23] MEDS ORDERED: SCOPOLAMINE HYDROBROMIDE 1 MG/3 DAYS PATCH TD SCH (10:30)
[2017-04-23] MEDS ORDERED: BUPIVACAINE 0.25% 30 ML SDV ONE (10:31)
[2017-04-23] MEDS ORDERED: ceFAZolin 1 GM VIAL ONE ×2 (10:50)
[2017-04-23] MEDS ORDERED: DEXAMETHASONE 4 MG/ML VIAL ONE (11:04)
[2017-04-23] MEDS ORDERED: ONDANSETRON 4 MG/2 ML VIAL ONE (11:04)
[2017-04-23] MEDS ORDERED: KETOROLAC 30 MG/1 ML SDV ONE (11:15)
[2017-04-23] MEDS ORDERED: SUGAMMADEX SODIUM 200 MG/2 ML VIAL IVP ONE (11:15)
[2017-04-23] MEDS ORDERED: OXYCODONE/APAP 5/325 TAB PO PRN (11:18)
[2017-04-23] MEDS ORDERED: fentaNYL 100 MCG/2 ML INJ IVP PRN (11:18)
[2017-04-23] MEDS ORDERED: ONDANSETRON 4 MG/2 ML VIAL IVP PRN (11:18)
[2017-04-23] MEDS ORDERED: NALOXONE HCL 0.4 MG/ML INJ IVP PRN (11:18)
[2017-04-23] MEDS ORDERED: PROMETHAZINE HCL 25 MG/ML INJ IVP PRN (11:18)
[2017-04-23] MEDS ORDERED: ACETAMINOPHEN 500 MG TAB PO PRN (11:18)
[2017-04-23] MEDS ORDERED: HYDROCODONE/APAP 5/325 TAB PO PRN (11:34)
[2017-04-23] MEDS ORDERED: PROMETHAZINE HCL 25 MG TAB PO PRN (11:34)
--- NOTE | 2017-04-23 11:40 | POSTOPPROG ---
Post Op Note Date of Operation: 04/23/17 Surgeon: Carloz Hamlin Snow Removing Supervisor: OR Staff Anesthesiologist: Ming Fairchild MD Anesthesia: GET(General Endotracheal) Pre-op Diagnosis: Chronic Pain of Female Post-op Diagnosis: Same Indication: 22 yo G0 WF with recurrent ED visits for pelvic pain Procedure: Diagnostic laparoscopy Findings: Normal uterus, fallopian tubes and ovaries Inf/Abcess present in the surg proc area at time of surgery?: No Depth: Organ Space EBL: Minimal Total fluids administered: 500 mL LR Complications: None Specimen(s): None
[2017-04-23] MEDS ORDERED: HYDROCODONE/APAP 5/325 TAB ONE (11:43)
[2017-04-23] MEDS: HYDROCODONE/APAP 5/325 TAB PO PRN ×2 (11:59→12:55)
--- NOTE | 2017-04-23 12:01 | SUROPNOTE ---
[facility] Operative Report - Surgery OPERATIVE REPORT DATE OF OPERATION: 04/23/2017 SURGEON: Miguel Ángel Hamlin MD OPTICAL EFFECTS LAYOUT PERSON: OR Staff ANESTHESIA: General Endotracheal ANESTHESIOLOGIST: Ming Fairchild MD PREOPERATIVE DIAGNOSIS: Chronic pelvic pain of female POSTOPERATIVE DIAGNOSIS: Chronic pelvic pain of female PROCEDURE PERFORMED: Diagnostic laparoscopy FINDINGS: Normal uterus (small), normal bilateral fallopian tubes, normal bilateral ovaries. Normal appearing peritoneum overlying bladder and in posterior cul-de-sac. Normal appearing bowel, bowel mesentery, appendix, liver edge, gall bladder. No evidence of injury to bowel, mesentery or blood vessels from laparoscopy port placement. SPECIMENS: None EBL: Minimal INDICATIONS: 22-year-old G0 white female with several months' history of persistent and worsening LLQ pain, suprapubic pain and generalized pelvic pain. She has presented to clinic, urgent care and multiple EDs with pain and exacerbation. She is negative for chlamydia (for which she was treated in January ). She has also been treated for recurrent vulvovaginitis. Pelvic pain, deep and worse with sex persists despite treatment with OCPs. After reviewing management options (conservative management, medical management, and laparoscopy , patient preferred surgery as next step). DESCRIPTION OF PROCEDURE: After appropriate consent was obtained patient was taken to OR. GET anesthesia was redosed and found to be adequate. 2 grams of Ancef was given IV. Patient was placed in dorsal lithotomy position with Sonido stirrups, then prepped and draped according to usual sterile fashion. Time out was performed. At perineum, with hips flexed, bimanual exam under anesthesia was performed. A small, mobile anteverted uterus was palpated. No adnexal masses or uterosacral nodularity was palpated. Red rubber catheter was used to empty 50 mL of clear yellow urine from bladder. Speculum was placed in vagina. Anterior lip of cervix was grasped with single-tooth tenaculum. [place] Walk uterine manipulator was placed with tip through cervix and handle clicked into tenaculum handle. Speculum was removed, hips were taken out of flexion, and attention moved to abdomen. With patient laying flat, the skin immediately below the umbilicus was injected with 0.25% Marcaine with epi. Scalpel was used to make 5 mm skin incision at this location. Using Optiview method, a 5-mm trocar was placed into the peritoneal cavity. Peritoneal placement was confirmed with opening pressure of 4 -mmHg. CO2 was introduced into peritoneal cavity to a pressure of 15-mmHg. Patient was placed in Trendelenburg position to optimize visualization of pelvic organs. An additional LLQ 5-mm trocar was placed under direct visualization for placement of blunt probe. Bowel, mesentery and blood vessels were examined below entry sites and no injury was noted. Systematic examination of liver, gall bladder, bowel and pelvis was performed. No obvious abnormalities noted (see findings). Pictures were taken of left and right ovaries and tubes, the uterus, the peritoneum overlying bladder and the posterior cul-de-sac. No abnormalities noted on pelvic peritoneum or on uterosacral ligaments. Instruments and trocars were removed from peritoneal cavity under direct visualization. CO2 gas was released from peritoneal cavity. Skin incisions (two 5-mm incisions) were approximated with subcuticular 4-0 monocryl stitches, steri -strips and bandaged appropriately. At the end of procedure sponge, lap and needle count was correct x 2. Patient tolerated procedure well and she was taken to PACU awake and in stable condition.
[2017-04-23 12:54] VITALS: BP 116/72; PULSE 58; RESP 20; O2SAT 98
[2017-04-23 13:14] VITALS: TEMP 98.1
--- NOTE | 2017-04-26 16:24 | POSTANESTH ---
Post Anesthetic Evaluation Cardiovascular Status: Normal, Stable, Similar to Pre-Op Cond Respiratory Status: Normal, Stable, Similar to Pre-op Cond. Level of Consciousness/Mental Status: Can Participate in Eval, Alert and Oriented Pain Control: Adequate, Prn Tx Ordered Nausea/Vomiting Control: Adequate, Prn Tx Ordered Complications Possibly Related to Anesthesia: None Noted
== END 2017-04-23 13:26 | disposition home or self-care (01) ==
LOC: FSGY 08:21
PROVIDERS: ATTEND Obstetrics & Gynecology Gynecology
PROC: 0UJ84ZZ Inspection of Fallopian Tube, Percutaneous Endoscopic Approach (ICD-10-PCS; principal; 2017-04-23 09:45)
PROC: 0UJ34ZZ Inspection of Ovary, Percutaneous Endoscopic Approach (ICD-10-PCS; principal; 2017-04-23 09:45)
PROC: 0UJD4ZZ Inspection of Uterus and Cervix, Percutaneous Endoscopic Approach (ICD-10-PCS; principal; 2017-04-23 09:45)
PROC: 0UJH4ZZ Inspection of Vagina and Cul-de-sac, Percutaneous Endoscopic Approach (ICD-10-PCS; principal; 2017-04-23 09:45)
PROC: 0DJW4ZZ Inspection of Peritoneum, Percutaneous Endoscopic Approach (ICD-10-PCS; principal; 2017-04-23 09:45)
DX: R10.2 Pelvic and perineal pain (principal); R10.32 Left lower quadrant pain; Z87.42 Personal history of other diseases of the female genital tract
CPT/HCPCS: J0171; J0690; J1100; J1885; J2001; J2250; J2405; J2704; J3010

== ENCOUNTER → 2018-02-23 | Outpatient (CLI) | payer BC | LOC: BMCIMAGING 11:50 | PROVIDERS: ATTEND Family Medicine | DX: M79.671 Pain in right foot (principal) ==

== ENCOUNTER → 2018-05-10 | Outpatient (CLI) | payer BC | LOC: BMCIMAGING 08:57 | PROVIDERS: ATTEND Podiatrist Foot & Ankle Surgery | DX: M79.661 Pain in right lower leg (principal) ==

== ENCOUNTER → 2018-05-18 | Outpatient (CLI) | payer BC | LOC: FIMAGING 13:29 | PROVIDERS: ATTEND Podiatrist Foot & Ankle Surgery | DX: M79.671 Pain in right foot (principal) ==

== ENCOUNTER → 2018-06-15 | Outpatient (CLI) | payer OTHER ==
[~2018-06-15] MED LIST changes: +BUPIVACAINE 0.25% 30 ML SDV ONE; +LIDOCAINE 1% 300 MG/30 ML SDV ONE; -ceFAZolin 2 GM/SWFI 2 GM/20 ML SYR IVP ONE
== END | disposition home or self-care (01) ==
LOC: FIMAGING 12:11
PROVIDERS: ATTEND Radiology Diagnostic Radiology
PROC: 3E0U3GC Introduction of Other Therapeutic Substance into Joints, Percutaneous Approach (ICD-10-PCS; principal; 2018-06-15)
DX: G89.29 Other chronic pain (principal); M77.51 Other enthesopathy of right foot and ankle; G57.61 Lesion of plantar nerve, right lower limb; M25.571 Pain in right ankle and joints of right foot